=== PATIENT | female | born 1935 | race Caucasian/White ===

== ENCOUNTER 2016-07-24 07:15 | Observation (INO) | payer MEDICARE, OTHER ==
--- NOTE | ~2016-07-24 | EKG ---
PATIENT: NADIYA CAMPOVERDE UNIT #: [id number] Ventricular Rate: 66 BPM Atrial Rate: 86 BPM QRS Duration: 92 ms Q-T Interval: 350 ms QTC Calculation(Bezet): 366 ms Calculated R [place]: -38 degrees Calculated T [place]: 54 degrees Diagnosis Line: Atrial fibrillation Diagnosis Line: Left axis deviation Diagnosis Line: Possible Inferior infarct , age undetermined Diagnosis Line: Cannot rule out Anterior infarct , age Diagnosis Line: undetermined Diagnosis Line: Abnormal ECG Diagnosis Line: When compared with ECG of 24-JUL-2016 06:29, Diagnosis Line: (unconfirmed) Diagnosis Line: Borderline criteria for Inferior infarct are now Diagnosis Line: Present Diagnosis Line: Confirmed by ROMERO VALENCIA MD ([id number]) on 07/25/2016 Diagnosis Line: 8:39:24 PM INTERPRETING MD: ANNIE NOGUERA
--- NOTE | ~2016-07-24 | DS ---
Unit #: [id number] #: [id number] Patient: NADIYA CAMPOVERDE [id number] [place], [place] [address] [id number] I MR#: [id number] NAME: NADIYA CAMPOVERDE. ROOM: 571 Age: 80 Sex: F Admission Date: 07/24/2016 : 1935 Discharge Date: 07/26/2016 Attending Physician: Alphonse Leo M.D. Primary Care Physician: No Primary Care Physician DISCHARGE SUMMARY REASON FOR ADMISSION Chest pain and/or dyspnea. HISTORY OF PRESENT ILLNESS/HOSPITAL COURSE Patient is an 80-year-old female, long-term resident at a local long term, who stated that she began developing acute onset of chest pain, as well as left-sided chest discomfort with associated dyspnea. Subsequently, she was transferred to [facility] for further evaluation. Upon initial evaluation, it was noted her overall clinical picture was consistent more with aspiration pneumonia. Her white count was elevated. She stated that she had trouble with swallowing over the past several weeks. She herself is a very poor historian. She has xjogqaov-zq-ghihck endstage dementia, and plans were discussed with the patient's family members, many of them who are present at bedside, including the patient's power of senior attorney, her son. She does have a prior history of hypertension, aortic stenosis, severe mitral regurgitation, atrial fibrillation and was not taking any anticoagulation secondary to frequent falls. Although initial chest x-ray did not reveal acute process, with her O2 saturations gradually decreasing, her overall clinical picture was more consistent with aspiration. We initially placed consultation to speech therapy service. As well, I was going to place consult to pulmonary service, but family requested Hospice services. After review, discussion with the family members and in consideration of the patient's advanced age, associated comorbid conditions and her wishes not to have a feeding tube placed, decision has been made for the patient to be made comfort care measures only. Hospice service will be consulted, and once appropriate disposition is achieved, patient may be transferred back to long term and/or to inpatient Hospice facility for ongoing care. Unfortunately, and overall, this patient's long-term prognosis is poor, and all family members are in agreement, as well. It should be noted that the patient's urinalysis/urine culture was positive for ESBL. FINAL/CURRENT CLINICAL DIAGNOSES 1. Acute hypoxic respiratory failure. 2. Clinical suspicion for aspiration pneumonia. 3. Dysphagia. Unit #: [id number] #: [id number] Patient: NADIYA CAMPOVERDE 4. Aortic stenosis, moderate to severe. 5. Chronic atrial fibrillation. 6. Endstage dementia with associated behavioral disturbance. 7. Failure to thrive. 8. Hyperlipidemia. 9. Anxiety. 10. Depression. DISCHARGE DISPOSITION Per Hospice service. DISCHARGE MEDICATIONS All medications from home/long term will be discontinued, and medications at time of discharge will be continued at the discretion of Hospice team. Dictated by... Dario Dhaliwal/noe TD: 07/26/2016 10:30 JOB #: [id number] DISCHARGE SUMMARY Page 1 of 1 X Alphonse Leo MD X DISCHARGE SUMMARY
--- NOTE | ~2016-07-24 | US84 ---
[id number] [facility]. [facility] [address]. [place], [place] [address] [id number] I MR#: [id number] Acc #: [id number] NAME: NADIYA CAMPOVERDE : 1935 SEX: F STUDY DATE/TIME: 07/25/2016 8:43 UNIT: [facility] ROOM: 571 STUDY DESCRIPTION: US LE Veins Complete John Stdy Attending Physician: Alphonse Leo M.D. Ordering Physician: Jeaneth Anaya A.P.R.N. Primary Care Physician: No Primary Care Physician MEDICAL IMAGING REPORT This report is preliminary unless electronic signature is present EXAM Bilateral lower extremity venous Doppler 07/25/2016 HISTORY Short of air and chest pain for 2 days. TECHNIQUE Venous ultrasound examination of both lower extremities was performed using grayscale, spectral Doppler and color flow Doppler imaging. FINDINGS The examination is negative. There is no evidence of deep venous thrombus from the groin to the lower calf bilaterally. Visualized greater saphenous veins are also patent. IMPRESSION Negative examination. No evidence of lower extremity deep venous thrombosis. Dictated by... Lino Candelario M.D. THIS IS AN ELECTRONICALLY VERIFIED REPORT Lino Candelario M.D. at 07/26/2016 10:30 AM RACHEL/lelia TD: 07/25/2016 11:16 JOB #: [id number] MEDICAL IMAGING REPORT Page 1 of 1 COPY
--- NOTE | ~2016-07-24 | EKG ---
PATIENT: NADIYA CAMPOVERDE UNIT #: [id number] Ventricular Rate: 96 BPM Atrial Rate: 93 BPM QRS Duration: 80 ms Q-T Interval: 330 ms QTC Calculation(Bezet): 416 ms Calculated R [place]: -21 degrees Calculated T [place]: 72 degrees Diagnosis Line: Atrial fibrillation Diagnosis Line: Abnormal ECG Diagnosis Line: When compared with ECG of 24-JUL-2016 12:51, Diagnosis Line: (unconfirmed) Diagnosis Line: Criteria for Septal infarct are no longer Present Diagnosis Line: QT has lengthened Diagnosis Line: Confirmed by ROMERO VALENCIA MD ([id number]) on 07/25/2016 Diagnosis Line: 9:21:58 PM INTERPRETING MD: ANNIE NOGUERA
--- NOTE | ~2016-07-24 | CO ---
Unit #: [id number] #: [id number] Patient: NADIYA QUINONEZ [id number] [place], [place] [address] [id number] I MR#: [id number] NAME: ANDIYA QUINONEZ ROOM: 571 Age: 80 Sex: F Admission Date: 07/24/2016 : 1935 Attending Physician: Alphonse Leo M.D. Consultation Date: 07/24/2016 CONSULTATION REPORT REASON FOR CONSULTATION Chest pain. HISTORY OF PRESENT ILLNESS This is an 80-year-old white female, who is a care home resident. Has a history in the past of chronic atrial fibrillation, has been off Xarelto since last year because of GI bleed that required transfusions; peptic ulcer disease; GERD; history of reported aortic stenosis; hypertension; hyperlipidemia; hypothyroidism; dementia, who came to the emergency room from the care home after having an episode of midsternal chest pain, radiating to the mid epigastric area along with radiated up to the neck and the left shoulder and to the back between her shoulder blades. It was reported from the care home that the patient got diaphoretic, short of breath, pale, weak, and nauseated. She was brought into the hospital for further evaluation and management. The patient does have some dementia. Most information is provided not from the patient, but the family and other medical records. The patient has not had any recent pain like this in the past according to the family at the bedside. She usually has been doing fairly well. At the care home, she sits in a wheelchair most of the day, but she can get up and walk a few steps, but as mentioned, she does have dementia. She has a poor memory recall. In the emergency room, the patient's blood pressure is 104/46, heart rate 58, respirations 18, temperature 97.6, O2 sats 94% on room air. Her initial cardiac enzymes are negative. Her potassium was 3.2, WBCs are up to 14.0, hemoglobin 12.8. Her urinalysis shows 4+ bacteria. Her AST is 184, ALT 42. Her BNP is 378. Her chest x-ray did not show anything acute, but does show some nonspecific chronic changes. Her EKG shows atrial fibrillation, shows an inferior Q-waves and Q-waves in V1 and V3, questionable infarct, and left ventricular hypertrophy. The patient has been given some potassium supplement and started on IV fluids. Cardiology has been asked to assist with evaluation and management. I had a discussion with the family and she used to see Dr. Banerjee at [facility], but has not seen him in some time. They are aware of her chronic atrial fibrillation and her Xarelto was stopped last year and also they know she has aortic stenosis. PAST MEDICAL HISTORY 1. Chronic atrial fibrillation, off Xarelto because of GI bleed in 02/2016. 2. History of severe iron-deficiency anemia in the past that required Unit #: [id number] #: [id number] Patient: NADIYA QUINONEZ transfusion. 3. History of peptic ulcer disease, gastroesophageal reflux disease. 4. 02/2016, EGD showed was normal. Did not do a colonoscopy at that time. 5. Hypertension. 6. Hyperlipidemia. 7. Hypothyroidism. 8. Anxiety and depression. 9. History of aortic stenosis. Other details are not available. 10. Dementia. 11. Reformed smoker. PAST SURGICAL HISTORY None. MEDICATIONS Medications from the care home; Singulair 10 mg p.o. daily, acetaminophen 500 mg p.o. daily, Zoloft 100 mg p.o. daily, Lanoxin 0.25 mg p.o. daily, Triglide 160 mg p.o. daily, Synthroid 100 mcg p.o. daily, Lipitor 10 mg p.o. daily, Toprol-XL 50 mg one tablet p.o. daily, K-Dur 20 mEq p.o. daily, Prozac 20 mg p.o. daily, Lasix 40 mg p.o. b.i.d., calcium plus vitamin D 500 mg p.o. t.i.d., benazepril 10 mg p.o. daily at bedtime, Imodium 2 mg p.o. daily p.r.n. for diarrhea, aspirin 81 mg p.o. daily, ferrous gluconate 325 mg 1 tablet p.o. b.i.d., cholestyramine 40 mg p.o. every 12 hours. ALLERGIES No known drug allergies. SOCIAL HISTORY The patient is a resident at [facility]. She is up in a wheelchair most of the day, but does ambulate a few steps from bed to chair. She used to smoke, quit about 20 years ago. No alcohol or illicit drug abuse. FAMILY HISTORY Noncontributory. REVIEW OF SYSTEMS See details in HPI. PHYSICAL EXAMINATION GENERAL: Ms. Quinonez is an 80-year-old white female. She is very hard of hearing. Has a poor memory recall. VITAL SIGNS: Currently, blood pressure 113/56, heart rate 87, respirations 16. She is afebrile. O2 saturations 93% on room air. NECK: Trachea midline. No thyromegaly or lymphadenopathy. Normal carotid upstrokes. Conductive cardiac sounds. HEART: S1, S2. Irregular rate and rhythm. Systolic murmur over aortic region, left sternal border. LUNGS: Very diminished. ABDOMEN: Round, soft. Slightly tender in the mid epigastric area. Normal bowel sounds. EXTREMITIES: Pedal pulses are palpable, but faint. No pedal edema. DIAGNOSTIC STUDIES LABORATORY RESULTS: Glucose is 88, BUN 18, creatinine 0.7, eGFR is 81.3, sodium 135, potassium 3.2, chloride is 95, CO2 of 34, calcium is 8.3, total protein 6.5, albumin 2.7, bilirubin total 1.2, AST 184, ALT 42, Unit #: [id number] #: [id number] Patient: NADIYA QUINONEZ alkaline phosphatase is 53. Amylase is 39, lipase is 40. BNP 378. WBCs 14.0, hemoglobin 12.8, hematocrit 40.3, platelets are 300. Urinalysis; trace of leukocyte esterase, 1.0 urobilinogen, 4+ bacteria. Urine cultures pending. Initial cardiac enzymes; CK-MB is less than 1.0, troponin less than 0.05. CK-MB is less than 1.0, troponin less than 0.05. IMAGING STUDIES: Chest x-ray, preliminary report, shows nonspecific chronic changes. CARDIOVASCULAR STUDIES: EKG shows atrial fibrillation, inferior Q-waves, also Q-waves in V1 and V2, left ventricular hypertrophy. IMPRESSION 1. Chest pain, epigastric pain. 2. History of chronic atrial fibrillation, not on anticoagulation because of gastrointestinal bleed in 02/2016. 3. Hypokalemia. 4. History of aortic stenosis. 5. Gastroesophageal reflux disease, history of peptic ulcer disease. 6. Anxiety and depression. 7. Hypothyroidism. 8. Elevated liver function tests. 9. Reformed smoker. 10. Dementia. PLAN 1. Cardiology consult to assist with evaluation and management. 2. Cardiac enzymes negative so far. EKG does not show anything acute. Continue to monitor cardiac enzymes and EKG. 3. Obtain a 2D echo to re-evaluate her aortic stenosis. 4. We will obtain records from [facility]. She used to see Dr. Banerjee and the family is aware that she had an aortic stenosis. 5. The patient's heart rate stable, on Toprol and Lanoxin, but we will hold the Lanoxin and check a Lanoxin level. 6. Her potassium is 3.2, we will supplement. 7. Questionable urinary tract infection. Cultures pending. 8. Symptoms could be cardiac versus GI symptoms. Her LFTs are elevated. Questionable etiology. 9. Daughter and son are at the bedside and the patient had a living will. The family request conservative medical management, and she is a DNR status at the care home and request to be here also at [facility]. 10. We will change her Toprol-XL to metoprolol tartrate 25 mg p.o. b.i.d. with parameters. We will also make adjustments to her cardiac medications while she is in here. 11. Obtain a fasting lipid profile, TSH, and evaluate. Further recommendations pending per Dr. Gaffney. Dictated by... Jeaneth Anaya A.P.R.N. for Esequiel Gaffney M.D. ISAAC/batool TD: 07/24/2016 22:11 JOB #: [id number] CC: [facility] Unit #: [id number] #: [id number] Patient: NADIYA QUINONEZ CONSULTATION REPORT Page 1 of 1 X Jeaneth Anaya APRN CONSULTATION REPORT
--- NOTE | ~2016-07-24 | CR72 ---
[facility] A Service of [facility] & [facility] & [facility] RADIOLOGY TEXT RESULTS PATIENT: NADIYA CAMPOVERDE LOCATION: [place] [address] : [birth year] UNIT #: [id number] AGE: [address]: Alphonse Leo MD SEX: F ORDER DR: [id number] [facility] [address]. [place], [place] [address] [id number] I MR#: [id number] Acc #: [id number] NAME: NADIYA CAMPOVERDE : 1935 SEX: F STUDY DATE/TIME: 07/25/2016 8:15 UNIT: [facility] ROOM: [facility] STUDY DESCRIPTION: CR Chest Single View Portable Attending Physician: Alphonse Leo M.D. Ordering Physician: Alphonse Leo M.D. Primary Care Physician: No Primary Care Physician MEDICAL IMAGING REPORT This report is preliminary unless electronic signature is present EXAM Portable chest 07/25/2016. HISTORY 80-year-old female with shortness of air for 2 days. Possible aspiration. COMPARISON Chest 07/24/2016. FINDINGS Frontal chest demonstrates no interval change in chronic-appearing bilateral interstitial opacities. No new pulmonary infiltrates. No large pleural effusion. No pneumothorax. Cardiomegaly stable. IMPRESSION No interval change and chronic-appearing bilateral interstitial opacities. No new focal pulmonary infiltrates. Dictated by... Griffin Haines M.D. THIS IS AN ELECTRONICALLY VERIFIED REPORT Griffin Haines M.D. at 07/25/2016 2:13 PM ASHLEIGH/lelia TD: 07/25/2016 09:06 JOB #: [id number] MEDICAL IMAGING REPORT Page 1 of 1 COPY
--- NOTE | ~2016-07-24 | EKG ---
PATIENT: NADIYA CAMPOVERDE UNIT #: [id number] Ventricular Rate: 81 BPM Atrial Rate: 117 BPM QRS Duration: 70 ms Q-T Interval: 308 ms QTC Calculation(Bezet): 357 ms Calculated R [place]: -17 degrees Calculated T [place]: 48 degrees Diagnosis Line: Atrial fibrillation Diagnosis Line: Septal infarct (cited on or before 24-JUL-2016) Diagnosis Line: Borderline criteria for Inferior infarct are no Diagnosis Line: longer Present Diagnosis Line: Questionable change in initial forces of Diagnosis Line: Anteroseptal leads Diagnosis Line: Confirmed by ROMERO VALENCIA MD ([id number]) on 07/25/2016 Diagnosis Line: 9:14:05 PM INTERPRETING MD: ANNIE NOGUERA
--- NOTE | ~2016-07-24 | EKG ---
PATIENT: NADIYA CAMPOVERDE UNIT #: [id number] Ventricular Rate: 64 BPM Atrial Rate: 49 BPM QRS Duration: 76 ms Q-T Interval: 362 ms QTC Calculation(Bezet): 373 ms Calculated R [place]: -26 degrees Calculated T [place]: 69 degrees Diagnosis Line: Atrial fibrillation Diagnosis Line: Abnormal ECG Diagnosis Line: No previous ECGs available Diagnosis Line: Confirmed by ROMERO VALENCIA MD ([id number]) on 07/25/2016 Diagnosis Line: 8:34:21 PM INTERPRETING MD: ANNIE NOGUERA
--- NOTE | ~2016-07-24 | CR72 ---
[facility] A Service of [facility] & [facility] RADIOLOGY TEXT RESULTS PATIENT: NADIYA CAMPOVERDE LOCATION: [facility] 571-01 : 34 UNIT #: [id number] AGE: [address]: Alphonse Leo MD SEX: F ORDER DR: [id number] [facility] [address] [place], [place] [address] [id number] I MR#: [id number] Acc #: [id number] NAME: NADIYA CAMPOVERDE. : 1935 SEX: F STUDY DATE/TIME: 07/24/2016 6:39 UNIT: [facility] ROOM: [facility] STUDY DESCRIPTION: CR Chest Single View Portable Attending Physician: Alphonse Leo M.D. Ordering Physician: Sunshine Ovalles M.D. Primary Care Physician: No Primary Care Physician MEDICAL IMAGING REPORT This report is preliminary unless electronic signature is present EXAM Portable chest, 07/24/2016. HISTORY 80-year-old female with shortness of air and chest pain for 1 day. Essential hypertension. COMPARISON Chest, 07/11/2015. FINDINGS Frontal chest demonstrates mild bilateral interstitial prominence, which appears chronic and unchanged from prior examinations. No focal pulmonary infiltrates. No pleural effusion or pneumothorax. Mild cardiomegaly stable. Mediastinum and pulmonary vasculature unremarkable. IMPRESSION 1. Mild chronic-appearing interstitial prominence bilaterally, unchanged from prior studies. No focal pulmonary infiltrates. 2. Stable mild cardiomegaly. Dictated by... Griffin Haines M.D. THIS IS AN ELECTRONICALLY VERIFIED REPORT Griffin Haines M.D. at 07/25/2016 8:10 AM ASHLEIGH/vipin TD: 07/24/2016 13:00 JOB #: [id number] MEDICAL IMAGING REPORT Page 1 of 1 COPY
--- NOTE | ~2016-07-24 | HP ---
Unit #: [id number] #: [id number] Patient: NADIYA CAMPOVERDE [id number] [address] [place], [place] [address] [id number] I MR#: [id number] NAME: NADIYA CAMPOVERDE. ROOM: 571 Age: 80 Sex: F Admission Date: 07/24/2016 : 1935 Attending Physician: Alphonse Leo M.D. Primary Care Physician: No Primary Care Physician HISTORY AND PHYSICAL REASON FOR ADMISSION Chest pain. HISTORY OF PRESENT ILLNESS The patient is an 80-year-old female who was recently admitted to our hospital in February of 2016 secondary to upper GI bleed with a hemoglobin of 5.5. She is a long-term resident at a local retirement, who is not on any chronic anticoagulation now, who presented after she began developing acute onset of chest pain, left sided, approximately 20 to 30 minutes. While she was seen and evaluated in the emergency room, she underwent an EKG which did not show any acute findings and cardiac enzymes first set was negative thus she is now itzel admitted for further evaluation and/or workup. PAST MEDICAL HISTORY History of a GI bleed/peptic ulcer disease February 2016, hypothyroidism, hypertension, history of aortic stenosis, history of moderate to severe mitral regurgitation, chronic atrial fibrillation, endstage dementia, failure to thrive, hyperlipidemia, anxiety, depression. PAST SURGICAL HISTORY Cholecystectomy. SOCIAL HISTORY Quit smoking approximately 20 years ago, no illicit drug use, lives in a retirement, no alcohol use. MEDICATIONS Current medications at retirement include Singulair, acetaminophen, Zoloft, digoxin, fenofibrate, Synthroid, Lipitor, Toprol, K-Dur, Prilosec, Lasix, calcium, Aricept, Imodium, aspirin, ferrous gluconate, cholestyramine. ALLERGIES No known drug allergies. REVIEW OF SYSTEMS Please see HPI; limited secondary to the patient's current condition. A ctecpnbt-gf-jeq who is an RN is present at bedside and I did review the review of systems as well as HPI with her. Unit #: [id number] #: [id number] Patient: NADIYA CAMPOVERDE PHYSICAL EXAMINATION VITAL SIGNS: Temperature 97.6, pulse 58, respiratory rate 17, blood pressure 104/46. GENERAL APPEARANCE: A frail 80-year-old female lying comfortably in no acute distress. HEAD EXAM: Normocephalic and atraumatic. EAR EXAM: Tympanic membranes reveal no erythema or injection. NECK EXAM: Supple. CVS: S1, S2, with a regular rate and rhythm, with a positive systolic ejection murmur heard. RESPIRATORY: Coarse breath sounds are noted bilaterally. GI/ABDOMEN: Nontender, nondistended. LOWER EXTREMITY EXAM: No evidence of any lower extremity edema. There is calf tenderness noted bilaterally. Decreased pedal pulses are also noted. DIAGNOSTIC STUDIES LABORATORY: Initial studies show digoxin level 2.0. Initial cardiac enzyme set negative. D-dimer is elevated at 948. BNP is 378. Urinalysis is mildly positive with trace leukocyte esterase, urobilinogen, as well as bacteria. BMP shows a potassium of 3.2, AST 184, ALT 42. CBC: Shows a hemoglobin of 12.8, white count of 14. IMAGING: Chest x-ray single view shows chronic appearing interstitial prominences but no acute process noted. INITIAL ADMISSION DIAGNOSES 1. Chest pain. 2. Elevated D-dimer. 3. Abdominal pain. 4. Dysphagia history in past. 5. Chronic pain syndrome. 6. Prior history of atrial fibrillation, not on anticoagulation secondary to gastrointestinal bleed history. 7. Anemia. 8. Gastrointestinal bleed in the past. 9. Peptic ulcer disease. 10. History of valve stenosis and/or valvular heart disease. 11. Prior history of systolic heart failure. 12. End-stage dementia. 13. Anxiety. 14. Gastroesophageal reflux disease history. PLAN Admission. Cardiac consultation has already been obtained. Patient has been placed on Zofran, morphine. As well a 2D echo has already been ordered. Will check an ultrasound lower extremities in consideration of elevated D-dimer. Rocephin will be initiated secondary to her abnormal urinalysis. Blood cultures will also be obtained. Urine culture will be obtained. Speech Therapy will be consulted. Video swallow study should be evaluated. GI consultation may be also obtained. My suspicion for acute cardiac/coronary syndrome is very low. Elevated D-dimer is likely nonspecific; however, we will perform ultrasound of her lower extremities and/or possible V/Q and/or CTA chest if positive for DVT. Again however anticoagulation is contraindicated secondary to prior history of GI bleeding and/or peptic ulcer disease. Overall this patient's condition and long-term prognosis is poor. Plans have been reviewed with the patient's ozxhroox-zk-ifn who is present at Unit #: [id number] #: [id number] Patient: NADIYA CAMPOVERDE bedside. She is well aware. Hospital workup will be initiated pending above. Dictated by Dario Dhaliwal/penny TD: 07/24/2016 20:45 JOB #: [id number] HISTORY AND PHYSICAL Page 1 of 1 X Alphonse Leo MD X HISTORY AND PHYSICAL
[2016-07-24 06:41] LABS: BASOPHIL# 0.1 X10e3 (0-0.3); BASOPHIL% 0.6 % (0-2.5); EOSINOPHIL# 0.1 X10e3 (0-0.7); EOSINOPHIL% 0.9 % (0.0-7.0); HEMATOCRIT 40.3 % (35.0-45.0); HEMOGLOBIN 12.8 gm/dL (12.0-16.0); LYMPHOCYTE# 1.5 X10e3 (1.0-3.5); LYMPHOCYTE% 10.8 % (17.0-45.0); MEAN CELL VOLUME 84.6 FL (83-96); MEAN CORPUSCULAR HEMOGLOBIN 26.9 PG (28-34); MEAN CORPUSCULAR HGB CONC 31.8 g/dL (30-36); MEAN PLATELET VOLUME 9.5 FL (6.5-11.5); MONOCYTE# 0.4 X10e3 (0-1.0); MONOCYTE% 3.2 % (3.0-12.0); NEUTROPHIL# 11.9 X10e3 (1.5-7.1); NEUTROPHIL% 84.5 % (40-75); PLATELET COUNT 300 X10e3 (140-420); RED BLOOD COUNT 4.77 X10e (3.90-5.30); RED CELL DISTRIBUTION WIDTH 16.8 % (11.0-15.5)
[2016-07-24 06:44] LABS: DIFF IND NO
[2016-07-24 06:52] LABS: POC - CKMB <1.0 ng/mL (0.0-7.9); POC - TROPONIN <0.05 ng/mL (<=0.05)
[2016-07-24 07:04] LABS: URINE SOURCE CLEAN CATCH
[2016-07-24 07:08] LABS: ALBUMIN SERUM 2.7 g/dL (3.5-5.0); BILIRUBIN, DIRECT 0.7 mg/dL (0.0-0.2); BILIRUBIN,INDIRECT 0.5 mg/dL (0.0-0.9); BILIRUBIN,TOTAL 1.2 mg/dL (0.2-2.0); BUN/CREATININE RATIO 25.71; CALCIUM SERUM 8.3 mg/dL (8.4-10.2); CREATININE SERUM 0.7 mg/dL (0.6-1.4); GLOM FILT RATE Estimated 81.3 mL/min (>60); POTASSIUM 3.2 mmol/L (3.5-5.1); PROTEIN TOTAL SERUM 6.5 g/dL (6.0-8.3)
[2016-07-24 07:09] LABS: URINE APPEARANCE CLOUDY; URINE BILIRUBIN NEG (NEG); URINE BLOOD NEG (NEG); URINE COLOR YELLOW; URINE GLUCOSE NEG (NEG); URINE KETONE NEG (NEG); URINE LEUKOCYTE ESTERASE TRACE (NEG); URINE NITRATE NEG (NEG); URINE PROTEIN NEG (NEG); URINE SPECIFIC GRAVITY 1.015 (1.003-1.035)
[2016-07-24 07:12] LABS: CULTURE INDICATED? YES; URBCS1 AUWI 0-2 /[HPF] (0-2); URINE BACTERIA AUWI 4+ (NEGATIVE); URINE SQUAMOUS EPITHELIAL CELL NONE SEEN /[HPF]
[~2016-07-24 07:15] MED LIST: ACETAMINOPHEN PO; ASPIRIN81 M2 PO; CHOLESTYRAM PO; CHOLESTYRAMINE L4 GM PO; DIGOX0.25 MG PO; DONEPEZIL HCL10 MG PO; FENOFIBRATE160 MG PO; FERROUS GLUCON324 M2 PO; FLORASTOR PO; IMODIUM2 MG PO; K-DUR20 ME1 PO; LASIX PO; LIPITOR PO; LORTAB 5-325 M1 EACH PO; OS-CAL 500 + D500 MG PO; PRILOSEC PO; SINGULAIR PO; SYNTHROID PO; TOPROL XL 50 MG50 MG PO; TRAZODONE HCL100 MG PO; TRIGLIDE160 M1 PO; XARELTO20 MG PO; ZOLOFT100 MG PO
[2016-07-24] MEDS ORDERED: CHOLESTYRAMINE P4 GM PO (08:05)
[2016-07-24 08:27] LABS: POC - CKMB <1.0 ng/mL (0.0-7.9); POC - TROPONIN <0.05 ng/mL (<=0.05)
[2016-07-24 14:26] LABS: CK TOTAL 37 IU/L (26-140)
[2016-07-24 19:40] LABS: CK TOTAL 20 IU/L (26-140)
[2016-07-25 06:00] LABS: HEMATOCRIT 41.1 % (35.0-45.0); HEMOGLOBIN 13.1 gm/dL (12.0-16.0); MEAN CELL VOLUME 84.3 FL (83-96); MEAN CORPUSCULAR HEMOGLOBIN 26.9 PG (28-34); MEAN CORPUSCULAR HGB CONC 31.9 g/dL (30-36); MEAN PLATELET VOLUME 10.1 FL (6.5-11.5); RED BLOOD COUNT 4.87 X10e (3.90-5.30)
[2016-07-25 06:02] LABS: WHITE BLOOD COUNT 39.3 X10e3 (4.0-10.5)
[2016-07-25 06:51] LABS: ALBUMIN SERUM 2.6 g/dL (3.5-5.0); BUN/CREATININE RATIO 32.5; CALCIUM SERUM 8.7 mg/dL (8.4-10.2); CREATININE SERUM 0.8 mg/dL (0.6-1.4); GLOM FILT RATE Estimated 69.2 mL/min (>60); MAGNESIUM 1.6 mg/dL (1.6-3.0); PROTEIN TOTAL SERUM 6.2 g/dL (6.0-8.3)
[2016-07-25 06:52] LABS: BILIRUBIN,TOTAL 4.8 mg/dL (0.2-2.0)
== END 2016-07-26 21:53 | disposition expired ==
LOC: CED 07:15 → CEDOF 09:20 → C5C 11:50
PROVIDERS: Emergency Medicine; Nurse Practitioner
DX: J96.01 Acute respiratory failure with hypoxia (principal); R13.10 Dysphagia, unspecified; I08.0 Rheumatic disorders of both mitral and aortic valves; I48.2 Chronic atrial fibrillation; Z79.01 Long term (current) use of anticoagulants; F03.91 Unspecified dementia, unspecified severity, with behavioral disturbance; R62.7 Adult failure to thrive; E78.5 Hyperlipidemia, unspecified; F41.8 Other specified anxiety disorders; K21.9 Gastro-esophageal reflux disease without esophagitis; K27.9 Peptic ulcer, site unspecified, unspecified as acute or chronic, without hemorrhage or perforation; R07.9 Chest pain, unspecified; R10.9 Unspecified abdominal pain; D64.9 Anemia, unspecified; I51.7 Cardiomegaly; E03.9 Hypothyroidism, unspecified; Z87.891 Personal history of nicotine dependence
CPT/HCPCS: 36415; 51701; 71010; 80048; 80053; 80061; 80076; 80162; 81003; 82150; 82550; 82553; 82607; 83690; 83735; 83880; 84443; 84484; 85025; 85027; 85379; 87086; 87088; 87186; 93005; 93306; 93970; 96374; 96375; 96376; 99285; C9113; G0378; J0696; J2060; J2270; J2405